=== PATIENT | male | born 1970 | race Hispanic/Latino ===

== ENCOUNTER 2017-07-31 07:29 | Day surgery (SDC) | payer OTHER ==
[~2017-07-31] VITALS: Ht 182.9 cm; Wt 168.7 kg
[~2017-07-31 07:29] MED LIST: ACID CONTROL150 MG PO; ALL DAY ALLERGY10 M1 PO; AMLODIPINE BESY10 MG PO; BACITRACIN1 PKT TOP; BACTRIM DS TAB1 EACH PO; CALCIUM CARBON500 MG PO; CLINDAMYCI900 MG/50 IV; CLINDAMYCIN HC300 MG PO; COLACE CLEAR50 MG PO; CULTURELLE CAP1 EACH PO; CYANOCOBAL1000 MCG/M IM; HYDROCHLOROTHIA25 MG PO; HYDROCORTISONE28 GM TOP; LIPITOR20 MG PO; LISINOPRIL10 MG PO; NAPROXEN500 MG PO; NORCO 10-325 T1 EACH PO; PAROXETINE HCL30 MG PO; RIFADIN300 MG PO; TERBINAFINE15 GM TOP; VITAMIN D1000 UNI1 PO; ZOCOR40 MG PO
--- NOTE | 2017-07-31 09:07 | NUR ---
07/31/17 0907 Viry Correa 0903 - PT ARRIVED TO PACU. PT MAINTAINING OWN AIRWAY. PT NOT RESPONDING TO QEUSTIONS YET.
--- NOTE | 2017-07-31 13:16 | OR ---
[facility] [address] [place], [place] [address] Signed DATE OF OPERATION: 07/31/2017 SURGEON: Tia Ramsay MD PREOPERATIVE DIAGNOSES: 1. History of pain upon defecation with rectal bleeding consistent with anal fissure (treated). 2. Recurrent symptoms. POSTOPERATIVE DIAGNOSIS: Two hyperplastic polyps of low rectum excised, colon otherwise normal. PROCEDURE: Total colonoscopy to cecum with cold morcellation polypectomy x2. ANESTHESIA: Intravenous sedation, fentanyl 150 mcg, Versed 8 mg. INDICATION: This is a very large (375 pounds) man, who is a prisoner at [facility] and a patient of Dr. Kaur. He has been treated and evaluated by me for anterior and posterior anal fissure, manifest as pain upon defecation and rectal bleeding. He is markedly improved by diltiazem ointment and fiber supplement, which he is no longer taking. Unfortunately, his symptoms have recurred somewhat including pain upon defecation and occasional bleeding. Colonoscopy was indicated to assess that there was no more proximal lesion accounting for the bleeding particularly cancer. He understands the risks of bleeding, infection, and perforation related to colonoscopy and wished to proceed. FINDINGS: The prep was excellent. Complete colonoscopy was undertaken to the cecum. There was no sign of polyps or diverticular formation. He did have 2 small hyperplastic-appearing polyps of the low rectum, which were excised in the retroflex position. The anal canal itself upon examination with the colonoscope did not confirm fissure. However, we acknowledged that is not the best visualization technique. He has very profoundly large buttocks given his advanced weight of 375 pounds. The clinical examination was somewhat lacking as well in this examination environment. His clinical symptoms are suggestive of persistent fissure, it is noted. DESCRIPTION OF PROCEDURE: Electronically Signed By: TIA RAMSAY MD 07/31/17 1316 PATIENT NAME: JULIANN ANGELA OPERATIVE REPORT DATE OF : 68 PHYSICIAN: TIA RAMSAY MD REPORT #: [id number] REPORT IS CONFIDENTIAL AND NOT TO BE RELEASED WITHOUT AUTHORIZATION [facility] [address] [place], [place] [address] Signed The patient was brought to the endoscopy suite and placed in lateral decubitus position, given intravenous sedation to the point of slurred speech and nystagmus. The size of his buttocks and distance from skin to anal canal was profoundly long and difficult to do even with dedicated effort to do so, but ultimately the anal canal was identified. The scope was eventually manipulated into the anal canal into the rectum. The scope was then manipulated throughout the colon, ultimately intubating the right colon visualizing, but not intubating the cecum, as there was no additional scope to allow for passage at that point. The scope was carefully withdrawn from that site. Examination throughout showed no sign of abnormality until retroflexed view of the rectum where 2 small hyperplastic polyps were noted. Narrow band imaging was undertaken confirming them likely to be hyperplastic. They were both excised nevertheless. The scope was carefully straightened and withdrawn through the anal canal multiple times, showing no obvious fissure, but this was not a definitive diagnostic approach for that. Attempted examination of the anal canal in the lateral decubitus position on the endoscopic table were lacking in their full effects, but no clear evidence of fissure was noted. The scope was ultimately removed and the patient was taken to the recovery room in good condition. CONCLUDING DIAGNOSIS: May still have narrow, difficult to visualize fissure particularly given his symptoms. We recommend diltiazem 2% ointment to be applied b.i.d. as well as Metamucil one tablespoon daily. We will see him back in senior living clinic and review his pathology reports of his polyps as well as his clinical progress. MD DEENA Aocsta/VENUSL /[id number] cc: Ed Kaur MD Electronically Signed By: TIA RAMSAY MD 07/31/17 1316 PATIENT NAME: JULIANN ANGELA BRENDAN OPERATIVE REPORT DATE OF : 68 PHYSICIAN: TIA RAMSAY MD REPORT #: [id number] REPORT IS CONFIDENTIAL AND NOT TO BE RELEASED WITHOUT AUTHORIZATION
== END 2017-07-31 09:50 | disposition home or self-care (01) ==
LOC: DS 07:29 → OPS 07:29 → DS 08:30 → OPS 09:50
PROVIDERS: Surgery
PROC: 0DBP8ZX Excision of Rectum, Via Natural or Artificial Opening Endoscopic, Diagnostic (ICD-10-PCS; principal; 2017-07-31 08:30)
DX: K62.1 Rectal polyp (principal); K21.9 Gastro-esophageal reflux disease without esophagitis; I10 Essential (primary) hypertension; E66.9 Obesity, unspecified
CPT/HCPCS: 99153; G0500; J2250; J3010; J7120

== ENCOUNTER 2018-09-14 06:20 | Day surgery (SDC) | payer OTHER ==
[~2018-09-14] VITALS: Ht 182.9 cm; Wt 172.4 kg
[2018-09-14] MEDS ORDERED: ANUSOL-HC30 GM PR (06:34)
[2018-09-14] MEDS ORDERED: ANTI-ITCH28 G1 TOP (06:34)
[2018-09-14] MEDS ORDERED: DIPHENHYDRAMINE50 M1 PO (06:36)
[2018-09-14] MEDS ORDERED: MIRALAX17 GM PO (06:38)
[2018-09-14] MEDS ORDERED: DOCUSATE SODIU250 MG PO (06:38)
[2018-09-14] MEDS ORDERED: COZAAR50 MG PO (06:39)
[2018-09-14] MEDS ORDERED: METOPROLOL SUCC25 MG PO (06:39)
--- NOTE | 2018-09-14 08:38 | NUR ---
09/14/18 0838 Paige Reed 0831 PATIENT ARRIVES TO PACU AWAKE, BUT DROWSY. DENIES PAIN. RESP EVEN AND UNLABORED, MASK AT 15 LITERS DECREASED TO 10 LITERS ON ARRIVAL TO PACU. 0835 PATIENT CONTINUES TO DENY PAIN. MASK OFF. ROOM AIR SATS >95%.
[2018-09-14] MEDS ORDERED: MAPAP325 MG PO (08:57)
[2018-09-14] MEDS ORDERED: HYDROCODON-ACE1 EA10 PO (08:57)
[2018-09-14] MEDS ORDERED: IBUPROFEN600 MG PO (08:57)
[2018-09-14] MEDS ORDERED: METAMUCIL FIBE3.4 GM PO (08:59)
--- NOTE | 2018-09-14 09:10 | NUR ---
PT RETURNS TO DS ROOM 10. PT DENIES PAIN/NAUSEA. PT ON RA WITH SATS >90%. IV SITE WNL. SCANT DRAINAGE ON ZAKIA PAD. [facility] IN ROOM WITH CALL LIGHT. FRESH ICE WATER AND CRACKERS/PUDDING PROVIDED.
--- NOTE | 2018-09-14 10:18 | NUR ---
PT C/O 01/09 PAIN. PT MEDICATED FOR PAIN. PT DENIES NAUSEA AND PROVIDED WITH MORE PO FLUIDS/CRACKERS. VSS. ZAKIA PAD REMAINS IN PLACE WITH SMALL AMOUNT OF DRAINAGE. [facility] IN ROOM WITH CALL LIGHT
--- NOTE | 2018-09-14 10:40 | NUR ---
PT REPORTS DECREASE IN PAIN LEVEL TO 1/10. NO NEW DRAINAGE NOTED ON ZAKIA PAD.
--- NOTE | 2018-09-14 10:58 | NUR ---
PT MEETS DC CRITERIA. IV DC'D WNL. DC INSTRUCTIONS WITH PRECAUTIONS PROVIDED TO PT. PT VERBALIZES UNDERSTANDING AND DENIES FURTHER QUESTIONS. PRESCIPTION GIVEN. PT IN STABLE CONDITION AND TRANSPORTED FROM DEPARTMENT IN WHEELCHAIR ACCOMPANIED BY [facility].
--- NOTE | 2018-09-14 11:55 | NUR ---
REPORT CALLED TO [facility]
--- NOTE | 2018-09-14 14:40 | OR ---
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 POSTOPERATIVE DIAGNOSES: 1. 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 2. Hemorrhoidal changes. PROCEDURES PERFORMED: 1. Exam under anesthesia. 2. Right lateral internal sphincterotomy (open technique). ANESTHESIA: General endotracheal; Tia Grossman CRNA; and local 10 mL of 0.25% Marcaine with epinephrine. INDICATION: This 48-year-old morbidly obese (379 pounds) man is a prisoner at [facility] and a patient of Dr. Ed Allen. He has had longstanding complaints of rectal bleeding and pain upon defecation. He underwent colonoscopy, which showed no sign of neoplastic or inflammatory lesion to account for it, and clinical examination does show posterior anal fissure. A medical therapy trial of diltiazem ointment has been unsuccessful in relieving his symptoms. He continues to have painful defecation and significant rectal bleeding related to the posterior anal fissure. He is admitted at this time to undergo exam under anesthesia and lateral internal sphincterotomy. He is notably quite obese and examination in the [facility] is difficult on the basis of that fact; however, I am confident that this really is the underlying cause of his problem at this time. He understands the risks of operation including but not limited to bleeding, infection, variable degrees of incontinence, recurrent fissure, and other unforeseen complications. Understanding this, he wished to proceed. 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 Evidence of recent bleeding was noted as well. Not previously appreciated were hemorrhoidal changes, which would be Electronically Signed By: TIA RAMSAY MD 09/14/18 1440 PATIENT NAME: JULIANN ANGELA OPERATIVE REPORT DATE OF : 68 REPORT #: [id number] PHYSICIAN: TIA RAMSAY MD PCP: ED ALLEN MD REPORT IS CONFIDENTIAL AND NOT TO BE RELEASED WITHOUT AUTHORIZATION [facility] [address] [place], [place] [address] Signed considered grade 4. Dominantly, this was on the left side. On that basis, lateral internal sphincterotomy was performed on the right side and good identification internal sphincter muscle was noted and division of the muscle up to the dentate line accomplished without problem. DESCRIPTION OF PROCEDURE: The patient was brought to the operating room and given a general endotracheal anesthetic. He was placed in the placed in a prone jackknife position with careful padding of pressure points. Preoperative antibiotic clindamycin had been given, sequential compression device stockings used, and heparin subcutaneously administered. The buttocks were taped apart allowing for examination. A photograph was taken demonstrating a posterior anal fissure. The perianal area was prepared with a chlorhexidine solution and draped sterilely. Tape had been used to spread the buttocks apart to allow for exposure of the anal canal despite his deep cleft related to his obesity. Close inspection showed the posterior anal fissure to be chronic and with some evidence of recent bleeding. A bivalve anal speculum retractor was placed after noting grade 4 hemorrhoidal changes most dominantly on the left side. Exposure of the right anal canal was undertaken. Palpation of the lateral aspect of the anal canal clearly demonstrated the hypertrophic internal sphincter. A curvilinear incision was made superficial to this and mindful of underlying hemorrhoidal disease throughout the anal area, meticulous care was maintained for hemostasis. Hemostat was used to insinuate the tissue beneath the anoderm isolating the internal sphincter laterally. An additional hemostat was used to elevate the internal sphincter from the external sphincter complex laterally. Irrigation was undertaken demonstrating the internal sphincter to have its characteristic white muscle fibers. Under direct visualization. The muscle was divided with electrocautery up to and slightly beyond the dentate line itself. Care was taken to avoid entry into the anal canal of course. A small amount of hemorrhoidal bleeding was secured with minimal amount of electrocautery. Pressure was applied to the area. The mucosa was then reapproximated with interrupted 3-0 chromic suture. Pressure was additionally applied to the area to ensure hemostasis. Once satisfied hemostasis was good, 10 mL of 0.25% Marcaine with epinephrine was injected locally at the operative site as well as the posterior fissure itself. A Gel-Foam with bacitracin was applied to the anal canal for its additional tamponading effect and a peripad was applied. He was carefully returned to the supine position, ultimately extubated and transferred to recovery in good condition. Electronically Signed By: TIA RAMSAY MD 09/14/18 1440 PATIENT NAME: JULIANN ANGELA OPERATIVE REPORT DATE OF : 68 REPORT #: [id number] PHYSICIAN: TIA RAMSAY MD PCP: ED ALLEN MD REPORT IS CONFIDENTIAL AND NOT TO BE RELEASED WITHOUT AUTHORIZATION [address] [address] Signed BLOOD LOSS: Minimal. COMPLICATIONS: None. MD DEENA Acosta/MODL /[id number] cc: Ed Allen MD Copies: ED ALLEN MD ~ Electronically Signed By: TIA RAMSAY MD 09/14/18 1440 PATIENT NAME: JULIO CÉSARJULIANN BRENDAN OPERATIVE REPORT DATE OF : 68 REPORT #: [id number] PHYSICIAN: TIA RAMSAY MD PCP: ED ALLEN MD REPORT IS CONFIDENTIAL AND NOT TO BE RELEASED WITHOUT AUTHORIZATION
--- NOTE | 2018-09-15 20:36 | EKG ---
[facility] [address] [facility] [place], [place] [address] Signed Normal sinus rhythm Normal ECG No previous ECGs available Confirmed by AALIYAH PEOPLES DO ([id number]) on 09/15/2018 8:35:46 PM Electronically Signed By: AALIYAH PEOPLES DO 09/15/18 2036 PATIENT NAME: JULIANN ANGELA BRENDAN Electrocardiogram DATE OF : 68 PHYSICIAN: AALIYAH PEOPLES DO REPORT #: [id number] REPORT IS CONFIDENTIAL AND NOT TO BE RELEASED WITHOUT AUTHORIZATION
== END 2018-09-14 10:55 | disposition home or self-care (01) ==
LOC: DS 06:20
PROVIDERS: Surgery
PROC: 0D8R0ZZ Division of Anal Sphincter, Open Approach (ICD-10-PCS; principal; 2018-09-14 06:45)
DX: K60.1 Chronic anal fissure (principal); K64.3 Fourth degree hemorrhoids; F32.9 Major depressive disorder, single episode, unspecified; I10 Essential (primary) hypertension; K21.9 Gastro-esophageal reflux disease without esophagitis; E78.00 Pure hypercholesterolemia, unspecified; E66.01 Morbid (severe) obesity due to excess calories; Z88.8 Allergy status to other drugs, medicaments and biological substances; Z88.0 Allergy status to penicillin; Z79.899 Other long term (current) drug therapy; Z68.43 Body mass index [BMI] 50.0-59.9, adult; Z87.891 Personal history of nicotine dependence
CPT/HCPCS: 00902; 93005; 93010; J0330; J1100; J1644; J1885; J2250; J2405; J2704; J2765; J3010; J7120

== ENCOUNTER 2018-10-10 18:36 | Emergency (ER) | payer OTHER ==
[~2018-10-10] VITALS: Ht 182.9 cm; Wt 166.5 kg
[~2018-10-10 18:36] MED LIST changes: +ANTI-ITCH28 G1 TOP; +ANUSOL-HC30 GM PR; +COZAAR50 MG PO; +DIPHENHYDRAMINE50 M1 PO; +DOCUSATE SODIU250 MG PO; +HYDROCODON-ACE1 EA10 PO; +IBUPROFEN600 MG PO; +MAPAP325 MG PO; +METAMUCIL FIBE3.4 GM PO; +METOPROLOL SUCC25 MG PO; +MIRALAX17 GM PO
--- NOTE | 2018-10-11 07:56 | EKG ---
[facility] [address] [facility] [place] [address] Signed Accelerated Junctional rhythm Nonspecific ST and T wave abnormality Abnormal ECG When compared with ECG of 14-SEP-2018 07:00, Junctional rhythm has replaced Sinus rhythm Confirmed by ERIC MARAVILLA MD ([id number]) on 10/11/2018 7:56:21 AM Electronically Signed By: ERIC MARAVILLA MD 10/11/18 0756 PATIENT NAME: JULIANN ANGELA Electrocardiogram DATE OF : 68 PHYSICIAN: ERIC MARAVILLA MD REPORT #: [id number] REPORT IS CONFIDENTIAL AND NOT TO BE RELEASED WITHOUT AUTHORIZATION
== END 2018-10-10 20:33 | disposition home or self-care (01) ==
LOC: ED 18:36
DX: R07.9 Chest pain, unspecified (principal); I10 Essential (primary) hypertension; Z87.891 Personal history of nicotine dependence; Z88.0 Allergy status to penicillin; K21.9 Gastro-esophageal reflux disease without esophagitis; E78.00 Pure hypercholesterolemia, unspecified; Z79.899 Other long term (current) drug therapy
CPT/HCPCS: 71045; 80053; 84484; 85025; 93005; 93010; 96360; 99285-25; J7030

== ENCOUNTER 2020-01-17 07:17 | Emergency (ER) | payer OTHER ==
[~2020-01-17] VITALS: Ht 182.9 cm; Wt 166.5 kg
== END 2020-01-17 10:30 | disposition home or self-care (01) ==
LOC: ED 07:17
DX: B34.9 Viral infection, unspecified (principal); I10 Essential (primary) hypertension; K21.9 Gastro-esophageal reflux disease without esophagitis; Z20.828 Contact with and (suspected) exposure to other viral communicable diseases; Z87.891 Personal history of nicotine dependence; Z88.0 Allergy status to penicillin; Z79.899 Other long term (current) drug therapy
CPT/HCPCS: 36415; 71045; 80053; 83605; 85025; 96374; 99285-25; J2405; J7030